=== PATIENT | female | born 1975 | race American Indian/Alaskan Native ===

== ENCOUNTER 2017-08-08 20:23 | Emergency (ER) | payer MEDICAID | END 2017-08-08 22:00 | disposition left against medical advice (07) | LOC: ED 20:23 | DX: M79.1 Myalgia (principal); Z53.21 Procedure and treatment not carried out due to patient leaving prior to being seen by health care provider ==

== ENCOUNTER 2020-04-04 08:19 | Emergency (ER) | payer MEDICAID ==
[2020-04-04 09:55] LABS: Basophils % (Auto) 0.4 % (0.0-1.8); Eosinophils % (Auto) 0.1 % (0.0-4.3); Hematocrit 43.1 % (30.3-42.9); Lymphocytes % (Auto) 8.4 % (13.4-35.0); Mean Corpuscular HGB Conc 33 % (30-34); Mean Corpuscular Volume 90 fl (79-97); Monocytes # (Auto) 0.6 K/mm3 (0.0-0.8); Monocytes % (Auto) 5.1 % (0.0-7.3); Platelet Count 257 K/mm3 (140-440); Red Cell Distribution Width 14.1 % (13.2-15.2)
[2020-04-04 09:58] LABS: Albumin 4.4 g/dL (3.9-5); Calcium 10.1 mg/dL (8.4-10.2)
[2020-04-04] MEDS ORDERED: ONDANSETRON 4 MG/2 ML INJ IV ONE (11:51)
[2020-04-04] MEDS ORDERED: HYDROmorphone 1 MG/1 ML INJ IV ONE ×4 (11:51→18:06)
[2020-04-04] MEDS ORDERED: LACTATED RINGERS 1,000 ML IV ONE (11:51)
--- NOTE | 2020-04-04 11:52 | Emergency Department Report ---
ED General Adult HPI - General Chief complaint: Abdominal Pain Stated complaint: ABDOMINAL PAIN PUI?: No Time Seen by Provider: 04/04/20 11:43 Source: patient, EMS, RN notes reviewed, old records reviewed Mode of arrival: Ambulatory Limitations: No Limitations - History of Present Illness Initial comments: The patient was evaluated in the emergency department for symptoms described in the history of present illness. He/she was evaluated in the context of the global COVID-19 pandemic, which necessitated consideration that the patient might be at risk for infection with the virus that causes COVID-19. Institutional protocols and algorithms that pertain to the evaluation of patients at risk for COVID-19 are in a state of rapid change based on information released by regulatory bodies including the CDC and federal and [facility] organizations. These policies and algorithms were followed during the patient's care in the emergency department. Please note that these policies, procedures and recommendations changed on a rapid basis. During the entire history and physical examination, I am chaperoned by Ms Madison Gilbert The patient is a 45-year-old female. She has a history of nephrolithiasis. She typically follows at [facility]. All of her physicians are at [facility]. She previously had an obstructing left-sided UPJ stone, and nephrostomy. She no longer has a nephrostomy. She presents to the ER today with a complaint of right upper quadrant, right flank and right upper back pain, that radiates [id number] since yesterday. No headache, neck pain, chest pain. No left-sided abdominal pain. No dysuria. Positive nausea. No vomiting. No fevers. States this feels similar to prior episodes of renal colic. -: Gradual, hour(s) Location: back, abdomen Radiation: back, abdomen Quality: aching Consistency: constant Improves with: medication, rest Worsens with: movement - Related Data Home Medications Medication Instructions Recorded Confirmed Last Taken metroNIDAZOLE [Flagyl] 500 mg PO Q12HR 05/25/15 05/25/15 05/25/15 Previous Rx's Medication Instructions Recorded Last Taken Type Ciprofloxacin HCl [Ciprofloxacin 500 mg PO Q12H #28 tab 05/26/15 Unknown Rx TAB] HYDROcodone/APAP 10-325 [[place] 1 each PO Q8HR PRN #20 tablet 05/26/15 Unknown Rx 10/325] Tamsulosin [Flomax] 0.4 mg PO QDAY #10 cap 05/26/15 Unknown Rx Allergies Allergy/AdvReac Type Severity Reaction Status Date / Time penicillin AdvReac Hives Verified 12/31/14 08:09 ED Review of Systems ROS: Stated complaint: ABDOMINAL PAIN Other details as noted in HPI Constitutional: malaise. denies: fever Eyes: denies: eye discharge ENT: denies: congestion Respiratory: denies: cough Cardiovascular: denies: chest pain Gastrointestinal: abdominal pain, nausea, vomiting Genitourinary: denies: dysuria Musculoskeletal: back pain Neurological: weakness ED Past Medical Hx - Past Medical History Previous Medical History?: Yes Hx Kidney Stones: Yes - Surgical History Past Surgical History?: Yes Additional Surgical History: Lithotripsy for kidney stones - Social History Smoking Status: Current Every Day Smoker Substance Use Type: Alcohol - Medications Home Medications: Home Medications Medication Instructions Recorded Confirmed Last Taken Type metroNIDAZOLE [Flagyl] 500 mg PO Q12HR 05/25/15 05/25/15 05/25/15 History Ciprofloxacin HCl [Ciprofloxacin 500 mg PO Q12H #28 tab 05/26/15 Unknown Rx TAB] HYDROcodone/APAP 10-325 [[place] 1 each PO Q8HR PRN #20 tablet 05/26/15 Unknown Rx 10/325] Tamsulosin [Flomax] 0.4 mg PO QDAY #10 cap 05/26/15 Unknown Rx ED Physical Exam - General Limitations: No Limitations General appearance: alert - Head Head exam: Present: atraumatic, normocephalic - Eye Eye exam: Present: normal appearance, EOMI. Absent: nystagmus - ENT ENT exam: Present: normal exam, normal orophraynx, mucous membranes moist, normal external ear exam - Neck Neck exam: Present: normal inspection, full ROM. Absent: tenderness, men ingismus - Respiratory Respiratory exam: Present: normal lung sounds bilaterally. Absent: respiratory distress, wheezes, rales, rhonchi, stridor, decreased breath sounds - Cardiovascular Cardiovascular Exam: Present: regular rate, normal rhythm, normal heart sounds. Absent: bradycardia, tachycardia, irregular rhythm, systolic murmur, diastolic murmur, rubs, gallop - GI/Abdominal GI/Abdominal exam: Present: soft, tenderness, normal bowel sounds, other (There is right upper quadrant tenderness. There is right flank tenderness. There is no CVA tenderness.). Absent: distended, guarding, rebound, rigid, pulsatile mass - Extremities Exam Extremities exam: Present: normal inspection, full ROM, other (2+ pulses noted in the bilateral upper and lower extremities. There is no palpable cord. negative Homans sign. Muscular compartments are soft. The pelvis is stable.). Absent: pedal edema, calf tenderness - Back Exam Back exam: Present: normal inspection, full ROM. Absent: tenderness, CVA t enderness (R), CVA tenderness (L), paraspinal tenderness, vertebral tenderness - Neurological Exam Neurological exam: Present: alert, normal gait, other (No facial droop. Tongue midline. Extraocular movements intact bilaterally. Facial sensation intact to light touch in V1, V2, V3 distribution bilaterally. 5 and a 5 strength in 4 extremities. Sensation intact to light touch in 4 extremities.). Absent: motor sensory deficit - Psychiatric Psychiatric exam: Present: anxious - Skin Skin exam: Present: warm, dry, intact, normal color. Absent: rash ED Course Vital Signs 04/04/20 08:23 Temperature 98.2 F Pulse Rate 64 Respiratory 20 Rate Blood Pressure 143/101 O2 Sat by Pulse 98 Oximetry - Reevaluation(s) Reevaluation #1: 04/04/20 12:58 Differential diagnosis, including but not limited to: Pyelonephritis, cholecystitis, renal colic Assessment and plan: 45-year-old female with known history of kidney stones, today with right upper quadrant pain, right flank pain. She is fairly tender in her right upper quadrant and right flank. There is no CVA tenderness. She is clinically improved after hydromorphone. CT scan of the abdomen pelvis with, without IV contrast ordered and pending. Urinalysis reviewed and appreciated. Patient denies travel, surgery, oral contraceptive use, and DVT, pulmonary embolism risk factors. This is unlikely to be cholecystitis, given laboratory studies. Reevaluation #2: 04/04/20 13:25 CT scan shows obstructing kidney stone, 1.5 cm on the right sided ureteropelvic junction. This hospital does not have urology available for ER consultation. I have reached out to [facility], where the patient receives her medical care, they indicate they are not excepting transfers. We will now reach out to the [facility] 04/04/20 13:30 No beds available in [facility] will reach out to [facility] 04/04/20 14:00 Have discussed with [facility] urologist, Dr. Curtis I discussed the patient's history, physical, pertinent laboratory studies and imaging findings I have requested transfer for services not available at this facility. She indicates that if necessary, her group will accept the patient as a transfer, however, requests that I speak to our interventional radiology group, to deter mine if they are amenable to perform a percutaneous nephrostomy. I informed her that in the past, our interventional radiology group typically does not perform percutaneous nephrostomy, unless urology is available for consultation, which they are not for the emergency room. Nevertheless, she asked that I discussed the patient's care with interventional radiology, to determine if they are amenable to intervening on this patient. I contacted our interventional radiologist/vascular surgeon, Dr. Zeke Sr, and I discussed the patient's history, physical, pertinent laboratory studies and imaging findings. He indicates his group is not able to perform any kind of percutaneous nephrostomy or any kind of intervention on this patient, without urology available as a coconsultant. Therefore, transfer is recommended. We have reached out to the [facility] transfer center to read discussed with the a forementioned specialist. This patient has an emergent medical condition at this time which I cannot definitively managed at this hospital, as I do not have urology available for consultation. The patient is hemodynamically stable, afebrile, protecting her airway, and suitable for transfer at this time for definitive care. Reevaluation #3: 04/04/20 14:11 Patient to be transferred to [facility] for urologic consultation, under Dr. Ni team Blood pressure in the 160s, clinically improved, states that she is amenable to this plan of care. ED Medical Decision Making - Lab Data Result diagrams: 04/04/20 08:40 04/04/20 08:40 Vital Signs 04/04/20 08:23 Temperature 98.2 F Pulse Rate 64 Respiratory 20 Rate Blood Pressure 143/101 O2 Sat by Pulse 98 Oximetry Lab Results 04/04/20 04/04/20 04/04/20 Range/Units 08:40 08:40 08:40 WBC 12.1 H (4.5-11.0) K/mm3 RBC 4.80 (3.65-5.03) M/mm3 Hgb 14.0 (10.1-14.3) gm/dl Hct 43.1 H (30.3-42.9) % MCV 90 (79-97) fl MCH 29 (28-32) pg MCHC 33 (30-34) % RDW 14.1 (13.2-15.2) % Plt Count 257 (140-440) K/mm3 Lymph % (Auto) 8.4 L (13.4-35.0) % Harper % (Auto) 5.1 (0.0-7.3) % Eos % (Auto) 0.1 (0.0-4.3) % Baso % (Auto) 0.4 (0.0-1.8) % Lymph # (Auto) 1.0 L (1.2-5.4) K/mm3 Harper # (Auto) 0.6 (0.0-0.8) K/mm3 Eos # (Auto) 0.0 (0.0-0.4) K/mm3 Baso # (Auto) 0.0 (0.0-0.1) K/mm3 Seg Neutrophils % 86.0 H (40.0-70.0) % Seg Neutrophils # 10.4 H (1.8-7.7) K/mm3 Sodium 140 (137-145) mmol/L Potassium 4.0 (3.6-5.0) mmol/L Chloride 102.8 (98-107) mmol/L Carbon Dioxide 25 (22-30) mmol/L Anion Gap 16 mmol/L BUN 18 H (7-17) mg/dL Creatinine 1.2 (0.6-1.2) mg/dL Estimated GFR 58 ml/min BUN/Creatinine Ratio 15 % Glucose 112 H (65-100) mg/dL Calcium 10.1 (8.4-10.2) mg/dL Total Bilirubin 0.40 (0.1-1.2) mg/dL AST 17 (5-40) units/L ALT 12 (7-56) units/L Alkaline Phosphatase 98 (35-129) units/L Total Protein 8.3 H (6.3-8.2) g/dL Albumin 4.4 (3.9-5) g/dL Albumin/Globulin Ratio 1.1 % Lipase 49 (13-60) units/L Urine Color (Yellow) Urine Turbidity (Clear) Urine pH (5.0-7.0) Ur Specific [place] (1.003-1.030) Urine Protein (Negative) mg/dL Urine Glucose (UA) (Negative) mg/dL Urine Ketones (Negative) mg/dL Urine Blood (Negative) Urine Nitrite (Negative) Urine Bilirubin (Negative) Urine Urobilinogen (<2.0) mg/dL Ur Leukocyte Esterase (Negative) Urine WBC (Auto) (0.0-6.0) /HPF Urine RBC (Auto) (0.0-6.0) /HPF U Epithel Cells (Auto) (0-13.0) /HPF Urine WBC Clumps /HPF Ur Transition Epith Cell /HPF Urine Mucus /HPF Urine HCG, Qual (Negative) 04/04/20 04/04/20 Range/Units Unknown Unknown WBC (4.5-11.0) K/mm3 RBC (3.65-5.03) M/mm3 Hgb (10.1-14.3) gm/dl Hct (30.3-42.9) % MCV (79-97) fl MCH (28-32) pg MCHC (30-34) % RDW (13.2-15.2) % Plt Count (140-440) K/mm3 Lymph % (Auto) (13.4-35.0) % Harper % (Auto) (0.0-7.3) % Eos % (Auto) (0.0-4.3) % Baso % (Auto) (0.0-1.8) % Lymph # (Auto) (1.2-5.4) K/mm3 Harper # (Auto) (0.0-0.8) K/mm3 Eos # (Auto) (0.0-0.4) K/mm3 Baso # (Auto) (0.0-0.1) K/mm3 Seg Neutrophils % (40.0-70.0) % Seg Neutrophils # (1.8-7.7) K/mm3 Sodium (137-145) mmol/L Potassium (3.6-5.0) mmol/L Chloride (98-107) mmol/L Carbon Dioxide (22-30) mmol/L Anion Gap mmol/L BUN (7-17) mg/dL Creatinine (0.6-1.2) mg/dL Estimated GFR ml/min BUN/Creatinine Ratio % Glucose (65-100) mg/dL Calcium (8.4-10.2) mg/dL Total Bilirubin (0.1-1.2) mg/dL AST (5-40) units/L ALT (7-56) units/L Alkaline Phosphatase (35-129) units/L Total Protein (6.3-8.2) g/dL Albumin (3.9-5) g/dL Albumin/Globulin Ratio % Lipase (13-60) units/L Urine Color Yellow (Yellow) Urine Turbidity Slightly-cloudy (Clear) Urine pH 7.0 (5.0-7.0) Ur Specific [place] 1.016 (1.003-1.030) Urine Protein 30 mg/dl (Negative) mg/dL Urine Glucose (UA) Neg (Negative) mg/dL Urine Ketones Neg (Negative) mg/dL Urine Blood Sm (Negative) Urine Nitrite Neg (Negative) Urine Bilirubin Neg (Negative) Urine Urobilinogen < 2.0 (<2.0) mg/dL Ur Leukocyte Esterase Lg (Negative) Urine WBC (Auto) 157.0 H (0.0-6.0) /HPF Urine RBC (Auto) 21.0 (0.0-6.0) /HPF U Epithel Cells (Auto) 13.0 (0-13.0) /HPF Urine WBC Clumps Few /HPF Ur Transition Epith Cell 3 /HPF Urine Mucus Few /HPF Urine HCG, Qual Negative (Negative) - Radiology Data Radiology results: pending, report reviewed, image reviewed Print Report Referring Physician: ARIK JERONIMO Patient Name: JALYN MATHEW Date of : 1975 Sex: Female Report Date: 2020-04-04 Report Status: Finalized Findings [facility] [address] [place] [address] Cat Scan Report Signed Patient: JALYN MATHEW MR#: [id number] : 1975 Acct:[id number] Age/Sex: 45 / F ADM Date: 04/04/20 Loc: ED Attending Dr: Ordering Physician: ARIK JERONIMO MD Date of Service: 04/04/20 Procedure(s): CT abdomen pelvis wo/w con Accession Number(s): [id number] cc: ARIK JERONIMO MD CT ABDOMEN AND PELVIS WITHOUT/WITH CONTRAST INDICATION / CLINICAL INFORMATION: MAIN. TECHNIQUE: Axial CT images were obtained through the abdomen and pelvis after 100 cc Omni [address] scans at this location are performed using CT dose reduction for ALARA by means of automated exposure control. COMPARISON: 05/25/2015 and priors FINDINGS: LOWER CHEST: No significant abnormality. HEPATOBILIARY: No significant abnormality. PANCREAS/SPLEEN/ADRENALS: Unchanged nonspecific thickening of the left adrenal gland. GENITOURINARY: Subcentimeter left renal hypodensity, possible cyst. Moderate right-sided hydronephrosis with 1.5 cm obstructing stone at the ureteropelvic junction. Additional punctate nephroliths measuring 2-4 mm. Left-sided nonobstructing nephrolithiasis measuring up to 1.3 cm at the inferior pole. No left-sided obstructive uropathy. Mildly delayed enhancement of the right kidney and mild perinephric fat stranding. Left ureter and bladder demonstrate no significant abnormality. GASTROINTESTINAL/MESENTERY: Appendix demonstrates no significant abnormality. No bowel obstruction or inflammation. No free air or significant free fluid. RETROPERITONEUM: No significant adenopathy. REPRODUCTIVE ORGANS: No significant abnormality. VASCULAR: Mild atherosclerotic calcification without acute abnormality. BODY WALL: No significant abnormality. SKELETAL SYSTEM: No significant abnormality. IMPRESSION: 1. Moderate right-sided obstructive uropathy with 1.5 cm stone at the UPJ. Superimposed component of infection such as polynephritis cannot be excluded. Recommend clinical and laboratory correlation, as well as further follow-up as warranted. 2. Bilateral nonobstructing nephrolithiasis. 3. Additional findings as above. Signer Name: Jude Coreas MD Signed: 04/04/2020 1:32 PM Workstation Name: [id number] Transcribed By: Dictated By: JUDE COREAS III Electronically Authenticated By: JUDE COREAS III Signed Date/Time: 04/04/20 1332 DD/ 1325 TD/TT: Critical care attestation.: If time is entered above; I have spent that time in minutes in the direct care of this critically ill patient, excluding procedure time. ED Disposition Clinical Impression: UPJ (ureteropelvic junction) obstruction, Kidney stone on right side, Hydronephrosis, Pyuria Disposition: [id number]/TX-[id number] [facility] IP Is pt being admited?: No Does the pt Need Aspirin: No Condition: Good Instructions: Abdominal Pain (ED) Referrals: PRIMARY CARE, [Primary Care Provider] - 3-5 Days
[2020-04-04] MEDS ORDERED: KETOROLAC 30 MG/1 ML INJ ONE (12:02)
[2020-04-04 12:22] LABS: Bilirubin,Urine NEG (Negative); Blood,Urine SM (Negative); Color,Urine Yellow (Yellow); Mucus,Urine FEW /HPF; Urobilinogen,Urine < 2.0 mg/dL (<2.0)
[2020-04-04 12:34] LABS: HCG Qualitative,Urine Negative (Negative)
--- NOTE | 2020-04-04 13:37 | Cat Scan Report ---
CT ABDOMEN AND PELVIS WITHOUT/WITH CONTRAST INDICATION / CLINICAL INFORMATION: MAIN. TECHNIQUE: Axial CT images were obtained through the abdomen and pelvis after 100 cc Omni [address] scans at this location are performed using CT dose reduction for ALARA by means of automated expos ure control. COMPARISON: 05/25/2015 and priors FINDINGS: LOWER CHEST: No significant abnormality. HEPATOBILIARY: No significant abnormality. PANCREAS/SPLEEN/ADRENALS: Unchanged nonspecific thickening of the left adrenal gland. GENITOURINARY: Subcentimeter left renal hypodensity, possible cyst. Moderate right-sided hydronephros is with 1.5 cm obstructing stone at the ureteropelvic junction. Additional punctate nephroliths measu ring 2-4 mm. Left-sided nonobstructing nephrolithiasis measuring up to 1.3 cm at the inferior pole. N o left-sided obstructive uropathy. Mildly delayed enhancement of the right kidney and mild perinephri c fat stranding. Left ureter and bladder demonstrate no significant abnormality. GASTROINTESTINAL/MESENTERY: Appendix demonstrates no significant abnormality. No bowel obstruction or inflammation. No free air or significant free fluid. RETROPERITONEUM: No significant adenopathy. REPRODUCTIVE ORGANS: No significant abnormality. VASCULAR: Mild atherosclerotic calcification without acute abnormality. BODY WALL: No significant abnormality. SKELETAL SYSTEM: No significant abnormality. IMPRESSION: 1. Moderate right-sided obstructive uropathy with 1.5 cm stone at the UPJ. Superimposed component of infection such as polynephritis cannot be excluded. Recommend clinical and laboratory correlation, as well as further follow-up as warranted. 2. Bilateral nonobstructing nephrolithiasis. 3. Additional findings as above. Signer Name: Migel Coreas MD Signed: 04/04/2020 1:32 PM Workstation Name: [id number]
[2020-04-04] MEDS ORDERED: KETOROLAC 30 MG/1 ML INJ IV ONE (14:45)
[2020-04-04] MEDS ORDERED: ALUM-MAG HYDROXIDE-SIMETHICONE 200-200-20MG/5ML ORAL LIQD 30 ML PO ONE (17:43)
[2020-04-04] MEDS ORDERED: LIDOCAINE VISCOUS 2% 15 ML ORAL LIQD PO ONE (17:43)
[2020-04-04 17:58] VITALS: BP 138/86
== END 2020-04-04 18:15 | disposition short-term general hospital (02) ==
LOC: ED 08:19
DX: N13.5 Crossing vessel and stricture of ureter without hydronephrosis (principal)
CPT/HCPCS: 36415; 74178; 80053; 81001; 81025; 83690; 85025; 87086; 96365; 96375; 96376; 99285; J1170; J1885; J1956; J2405; J7120; Q9967

== ENCOUNTER 2021-12-15 18:12 | Emergency (ER) | payer MEDICAID ==
[2021-12-15 18:39] VITALS: BP 140/90
== END 2021-12-16 00:55 | disposition left against medical advice (07) ==
LOC: ED 18:12
DX: N28.9 Disorder of kidney and ureter, unspecified (principal); Z53.21 Procedure and treatment not carried out due to patient leaving prior to being seen by health care provider